=== PATIENT | male | born 1990 | race Hispanic/Latino ===

== ENCOUNTER 2017-11-22 22:16 | Emergency (ER) | payer SELFPAY ==
[2017-11-22 22:16] VITALS: BP 104/64; PULSE 101; RESP 23; TEMP 37.3; O2SAT 100
--- NOTE | 2017-11-22 22:20 | DI.RAD.S_ITS ---
PROCEDURE: XR CHEST 1V INDICATIONS: chest pain for 1-2 weeks TECHNIQUE: One view of the chest was acquired. COMPARISON: None. FINDINGS: Surgical changes and devices: None. Lungs and pleura: No pleural effusions or pneumothorax. Multiple pulmonary mass lesions are evident bilaterally, highly suspect for metastatic disease. Mediastinum: Mediastinal contours appear normal. Heart size is normal. Bones and chest wall: No suspicious bony lesions. Overlying soft tissues appear unremarkable. IMPRESSION: Probable metastatic lung disease. Infectious process such as septic embolization, Vance's granulomatosis, rheumatoid lung disease, coccidiomycosis cannot be excluded. Dictated by: Jesus Smith M.D. on 11/23/2017 at 7:54 Approved by: Jesus Smith M.D. on 11/23/2017 at 7:57
[2017-11-22 22:40] LABS: Add Manual Diff / Slide Review NO; Eosinophils Percent Auto 0.5 % (2-4); Hematocrit 33.2 % (41-53); Lymphocytes Percent Auto 19.3 % (25-40); Mean Corpuscular HGB Conc 33.2 % (30-36); Mean Corpuscular Hemoglobin 25.5 PG (26-34); Monocytes Percent Auto 5.7 % (3-14); Neutrophils Absolute Auto 10600 /uL (3000-5900); Neutrophils Percent Auto 73.5 % (50-75); Platelet Count 597 X10^3/uL (150-400); Red Blood Cell Count 4.31 X10^6/uL (4.5-5.9); Red Cell Distribution Width 14.8 % (11.6-14.8); White Blood Cell Count 14.4 X10^3/uL (4.5-11.0)
[2017-11-22 22:50] LABS: Alanine Aminotransferase 32 IU/L (21-72); Albumin 4.5 g/dL (3.5-5.0); Albumin Globulin Ratio 1.2 (1.0-2.8); Alkaline Phosphatase 125 U/L (38-126); Aspartate Aminotransferase 27 IU/L (17-59); BUN Creatinine Ratio 16.3 (6-22); Bilirubin Total 0.8 mg/dL (0.2-1.3); Blood Urea Nitrogen 13 mg/dL (9-20); Calcium 9.9 mg/dL (8.4-10.2); Carbon Dioxide 28 mmol/L (22-32); Chloride 98 mmol/L (98-107); Creatine Kinase 66 U/L (55-170); Estimated Glomerular Filt Rate > 60.0 mL/min (>60); Globulin 3.9 g/dL (1.7-4.1); Glucose 103 mg/dL (70-100); HEMOLYSIS < 15 (0-50); Lipase 29 U/L (23-300); Sodium 137 mmol/L (137-145); Total Protein 8.4 g/dL (6.3-8.2)
--- NOTE | 2017-11-22 22:52 | ED_ITS ---
HPI - Chest Pain General Chief Complaint: Chest Pain Stated Complaint: Chest Pain/ N/V Time Seen by Provider: 11/22/17 22:20 Source: patient Mode of arrival: ambulatory Limitations: no limitations History of Present Illness HPI narrative: The patient is a 27-year-old male who presents with chest discomfort. He has had some nausea vomiting and shoulder pain. He complains of right shoulder pain but no right upper quadrant pain. He says his left lower rib hurts every time he moves or breathes. He has not passed out or had a syncopal episode. No fever or chills. No productive cough. This is been ongoing for the last 1 hr, it started at work. Review of Systems Review of Systems All systems reviewed & are unremarkable except as noted in HPI and below Constitutional Denies chills, Denies fever(s), Denies lethargy and Denies weakness Eyes Denies change in vision, Denies eye discharge, Denies irritation and Denies loss of vision Cardiovascular Reports chest pain (Right-sided), Denies syncope, Denies rapid heart rate, Denies palpitations and Denies dyspnea Respiratory Denies cough, Denies dyspnea and Denies stridor Gastrointestinal Gastrointestinal: Reports abdominal pain (Left upper quadrant), Denies diarrhea , Reports nausea and Reports vomiting (x1) Genitourinary Reports scrotal swelling (Right side months) Musculoskeletal Denies back pain, Denies muscle weakness, Denies numbness and Denies tingling Integumentary/Breasts Denies pruritus, Denies erythema, Denies rash and Denies wounds Neurologic Denies syncope, Denies loss of vision, Denies numbness, Denies tingling and Denies weakness Endocrine Denies palpitations [facility] Medical History Healthy adult (Acute) Social History Smoking Status: Never smoker alcohol intake: never substance use type: does not use Comment: No family history of cancer that he knows of [place] Exam Initial Vital Signs Initial Vital Signs: Vital Signs Temperature 99.1 F 11/22/17 22:16 Pulse Rate 101 H 11/22/17 22:16 Respiratory Rate 23 11/22/17 22:16 Blood Pressure 104/64 11/22/17 22:16 Pulse Oximetry 100 11/22/17 22:16 Const General: cooperative and healthy appearing Orientation: alert, awake and oriented x3 HENMT Head: normal to inspection and normocephalic Eyes General: appearance normal, both eyes and all related structures Neck Neck: normal visual inspection, full ROM and No JVD Chest Chest: normal inspection of the chest Resp Auscultation: clear to auscultation bilaterally, no rales, no rhonchi and no wheezes Cardio Rate: regular rate Rhythm: regular rhythm Heart Sounds: S1 normal and S2 normal GI Palpation: soft, No firm, No guarding and tender (mild tenderness left upper quadrant) External: no ecchymosis, scrotal swelling (nurse Cece present for exam) on the right (Large hard mass) and nontender Skin General: no rashes or lesions noted Neuro General: alert, awake and oriented x3 Cranial Nerves: CN's II-XI intact bilaterally Course Orders Ordered: ED Orders 11/22/17 22:19 EKG-12 Lead Stat 11/22/17 22:20 XR chest 1V Stat 11/22/17 22:30 Complete Blood Count AUTO DIFF Stat Comprehensive Metabolic Panel Stat Lipase Stat Troponin & CK Cardiac Panel Stat 11/23/17 00:40 CT abdomen pelvis w con Stat 11/23/17 01:49 US scrotum Stat Discontinued Medications Sodium Chloride (Normal Saline 0.9%) 1,000 mls @ 150 mls/hr IV CONT NATASHA Last Admin: 11/23/17 00:03 Dose: Not Given Sodium Chloride (Normal Saline 0.9%) 1,000 mls @ 150 mls/hr IV CONT NATASHA Last Infusion: 11/23/17 03:08 Dose: 0 mls/hr Admin: 11/23/17 00:03 Dose: 150 mls/hr Ketorolac Tromethamine (Toradol) 30 mg IV NOW ONE Stop: 11/22/17 22:51 Last Admin: 11/23/17 00:03 Dose: 30 mg Ondansetron HCl (Zofran) 4 mg IV NOW ONE Stop: 11/22/17 22:51 Last Admin: 11/23/17 00:03 Dose: 4 mg Vital Signs - 8 hr 11/22/17 22:16 11/22/17 22:58 11/22/17 23:16 Temperature 99.1 F Pulse Rate 101 H 99 H 96 H Respiratory Rate 23 19 23 Blood Pressure 104/64 Blood Pressure [Left Arm] 116/63 111/57 L Pulse Oximetry 100 99 99 11/23/17 03:08 Temperature Pulse Rate 88 Respiratory Rate 16 Blood Pressure 121/72 H Blood Pressure [Left Arm] Pulse Oximetry 99 MDM - Chest Pain Medical Records Data Attestation: I reviewed the patient's medical records. Lab Data Attestation: I reviewed the patient's lab results. Result diagrams: 11/22/17 22:30 11/22/17 22:30 Lab Results 11/22/17 11/22/17 Range/Units 22:30 22:30 WBC 14.4 H (4.5-11.0) X10^3/uL RBC 4.31 L (4.5-5.9) X10^6/uL Hgb 11.0 L (13.5-17.5) g/dL Hct 33.2 L (41-53) % MCV 77.0 L (80-100) fL MCH 25.5 L (26-34) PG MCHC 33.2 (30-36) % RDW 14.8 (11.6-14.8) % Plt Count 597 H (150-400) X10^3/uL Neut % (Auto) 73.5 (50-75) % Lymph % (Auto) 19.3 L (25-40) % [place] % (Auto) 5.7 (3-14) % Eos % (Auto) 0.5 L (2-4) % Baso % (Auto) 1.0 (0-2) % Neut # (Auto) 94874 H (7389-4071) /uL Sodium 137 (137-145) mmol/L Potassium 4.0 (3.4-5.1) mmol/L Chloride 98 (98-107) mmol/L Carbon Dioxide 28 (22-32) mmol/L BUN 13 (9-20) mg/dL Creatinine 0.80 (0.66-1.25) mg/dL Estimated GFR > 60.0 (>60) mL/min BUN/Creatinine Ratio 16.3 (6-22) Glucose 103 H (70-100) mg/dL Calcium 9.9 (8.4-10.2) mg/dL Total Bilirubin 0.8 (0.2-1.3) mg/dL AST 27 (17-59) IU/L ALT 32 (21-72) IU/L Alkaline Phosphatase 125 (38-126) U/L Total Creatine Kinase 66 (55-170) U/L Troponin I < 0.012 (0.01-0.034) ng/mL Total Protein 8.4 H (6.3-8.2) g/dL Albumin 4.5 (3.5-5.0) g/dL Globulin 3.9 (1.7-4.1) g/dL Albumin/Globulin Ratio 1.2 (1.0-2.8) Lipase 29 (23-300) U/L Imaging Data CT scan - abdomen: 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 No evidence of free air or free fluid. There is diverticulosis without CT evidence of diverticulitis. Appendix is normal. The bladder appears morphologically unremarkable and there are no stones. There is a large right hydrocele. 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 Inferior to this is a soft tissue mass measuring 8.7 x 9.3 x 10.3 cm. This demonstrates vascularity within it . Conclusion large complex mass in the right hemiscrotum measuring 10 cm in its greatest dimension. There is an adjacent cyst or loculated hydrocele. These findings would be worrisome for an underlying malignancy as already suggested by CT. Chest x-ray: Attestation: I personally reviewed and interpreted this imaging study as follows: My impression: An masses or nodules in the bilateral lungs no cardiomegaly ECG Data Attestation: I personally reviewed and interpreted this ECG as follows: Prior ECG tracings: not available for review Interpretation: Normal sinus rhythm rate [address] changes no T-wave inversions no prior to compare MDM Narrative Medical decision making narrative: Initially patient did not reveal that he has had some testicular swelling in abnormality for the last few months, it was found on CT then re questioned and examined. It is concerning that he has metastatic disease at this time. He is scheduled to go back to [place] where he lives by the end of the week. At this time I did discuss with hospitalist admission. However he really just needs follow-up with Oncology. Also a patient and planning on leaving and going back to [place] he needs continuity of care and treatment started there. I have discussed all findings with the patient. He understands the severity of this and the need for immediate attention. He is given copies of EKG, blood work and disc with his imaging studies. Discharge Plan Departure Patient Disposition: Home, Self-Care Clinical Impression: Mass of right testicle Discharge Date/Time: 11/23/17 03:10 Interventions: ED Discharge Assessment Last Done: 11/23/17 03:08 Instructions: DI for Testicular Cancer Activity Restrictions/Additional Instructions: *You have been diagnosed with testicular mass *What to do: Must be seen by Oncology as soon as possible, concern for testicular cancer *Continue to take medications as directed *Follow up with your primary care provider in 2-3 days *Return to ER if you should have increasing pain or any new, worsening or concerning symptoms Referrals: Sergey Birch MD [Physician] -
[2017-11-22 22:58] VITALS: BP 116/63; PULSE 99; RESP 19; O2SAT 99
[2017-11-22 23:02] LABS: Troponin I < 0.012 ng/mL (0.01-0.034)
[2017-11-22 23:16] VITALS: BP 111/57; PULSE 96; RESP 23; O2SAT 99
[2017-11-23] MEDS: KETOROLAC 60 MG/2 ML VIAL 30 MG IV (00:03)
[2017-11-23] MEDS: ONDANSETRON 4 MG/2 ML INJ IV (00:03)
[2017-11-23] MEDS: SODIUM CHLORIDE 0.9% 1,000 ML 150 ML IV (00:03)
--- NOTE | 2017-11-23 00:10 | PC.NURSE ---
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
--- NOTE | 2017-11-23 00:40 | DI.CT.S_ITS ---
PROCEDURE: CT ABDOMEN PELVIS W CON INDICATIONS: Left upper abdominal pain TECHNIQUE: After the administration of intravenous contrast, 5 mm thick sections acquired from the diaphragm to the symphysis. 5 mm coronal and sagittal reformats were acquired. For radiation dose reduction, the following was used: automated exposure control, adjustment of mA and/or kV according to patient size. COMPARISON: None. FINDINGS: Preliminary report by steward/stewardess night radiology Image quality: Excellent. ABDOMEN: Lung bases: There are innumerable pulmonary nodules at the lung bases, measuring up to 2 cm in size. Small right pleural effusion. Partially visualized is right hilar and subcarinal lymphadenopathy. There is a 2.3 cm diameter mass in the left paraspinous region posterior to the aorta and smaller right paraesophageal adenopathy. An abnormal 11 mm left subcrural node also noted. Solid organs: Liver shows diffuse heterogeneous coarse texture with no measurable mass. Gallbladder appears normal. Biliary system is non dilated. Pancreas enhances normally. Spleen is normal in size and enhancement. No adrenal nodules. Kidneys demonstrate normal size and enhancement, without hydronephrosis. Peritoneum and bowel: Bowel loops demonstrate normal wall thickness and caliber. Normal appendix. Mild colonic diverticulosis. No free fluid or air. Nodes and vessels: Bulky right subcrural adenopathy is present. Retroperitoneal adenopathy is present, confluent aortocaval adenopathy with the mass measuring approximately 3.6 x 6.4 x 9 cm in size. Adenopathy extends through the right iliac chain. Aorta is normal in size. The IVC is essentially obscured by adenopathy Miscellaneous: No ventral hernias. PELVIS: Genitourinary: Bladder wall thickness is normal. Prostate and seminal vesicles appear normal. There is a large, septated fluid collection in the right scrotum. Miscellaneous: No inguinal hernias or adenopathy. Bones: No suspicious bony lesions. No vertebral body compression fractures. IMPRESSION: 1. Multiple bilateral pulmonary nodules consistent with metastatic lung disease. 2. Hilar, mediastinal, retrocrural and retroperitoneal lymphadenopathy is likely metastatic. Possibility of lymphoma cannot be excluded. 3. Large right septated hydrocele. Further evaluation by testicular ultrasound is recommended to exclude associated testicular carcinoma. Dictated by: Jesus Smith M.D. on 11/23/2017 at 8:22 Approved by: Jesus Smith M.D. on 11/23/2017 at 8:38
--- NOTE | 2017-11-23 01:49 | DI.US.S_ITS ---
PROCEDURE: US SCROTUM INDICATIONS: large right side TECHNIQUE: Real-time scanning was performed of the scrotum and testicles, with image documentation. Color and pulse Doppler interrogation was performed of both testicles. COMPARISON: [facility], CT, CT ABDOMEN PELVIS W CON, 11/23/2017, 0:45. FINDINGS: Preliminary report by hops farmworker radiology Right: Normal right testicle is not evident. There is a solid mass measuring 8.7 x 9.3 x 10.3 cm it shows internal vascularity. Adjacent and superior to that is a cystic mass measuring 6.9 x 8.9 x 9.0 cm. The findings correspond to the CT exam. Left: Testicle is normal in size at 2.3 x 3.3 x 4.6 cm, and homogeneous in echotexture. Epididymis is normal in overall size and morphology. No hydrocele or varicoceles. Overlying scrotal skin is normal in thickness. Doppler: Color and pulse Doppler demonstrate normal arterial flow in the left testicle. IMPRESSION: 1. Cystic mass versus mass with loculated hydrocele on the right, suspect for primary testicular malignancy. Surgical consultation is advised. 2. Normal left testicle. Findings are concordant with the preliminary report. Dictated by: Jesus Smith M.D. on 11/23/2017 at 8:12 Approved by: Jesus Smith M.D. on 11/23/2017 at 8:18
--- NOTE | 2017-11-23 02:39 | PC.NURSE ---
testicular ultraasound
[2017-11-23 03:08] VITALS: BP 121/72; PULSE 88; RESP 16; O2SAT 99
--- NOTE | 2017-11-23 03:09 | PC.NURSE ---
Placed by SANDRA
== END 2017-11-23 03:10 | disposition home or self-care (01) ==
PROVIDERS: Emergency Provider Emergency Medicine
DX: N50.9 Disorder of male genital organs, unspecified (principal); R07.9 Chest pain, unspecified
CPT/HCPCS: 36415; 71045; 74177; 76870; 80053; 82550; 82553; 83690; 84484; 85025; 93005; 93010; 96361; 96374; 96375; 99283; 99285; J1885; J2405; Q9967